=== PATIENT | male | born 1995 | race American Indian/Alaskan Native ===

== ENCOUNTER 2018-08-22 15:23 | Emergency (ER) | payer SELFPAY ==
[2018-08-22] MEDS ORDERED: ULTRAM PO ONE (20:41)
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
[2018-08-22 21:01] VITALS: BP 122/68
== END 2018-08-22 21:00 | disposition home or self-care (01) ==
LOC: ED 15:23
DX: S16.1XXA Strain of muscle, fascia and tendon at neck level, initial encounter (principal); S39.012A Strain of muscle, fascia and tendon of lower back, initial encounter; V89.2XXA Person injured in unspecified motor-vehicle accident, traffic, initial encounter; Y93.89 Activity, other specified; Y99.8 Other external cause status; Y92.410 Unspecified street and highway as the place of occurrence of the external cause
CPT/HCPCS: 99282

== ENCOUNTER 2020-09-03 22:42 | Emergency (ER) | payer SELFPAY ==
[2020-09-04 01:25] VITALS: BP 116/67
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
== END 2020-09-04 04:43 | disposition home or self-care (01) ==
LOC: ED 22:42
DX: S16.1XXA Strain of muscle, fascia and tendon at neck level, initial encounter (principal); Z79.899 Other long term (current) drug therapy; V49.49XA Driver injured in collision with other motor vehicles in traffic accident, initial encounter; Y92.410 Unspecified street and highway as the place of occurrence of the external cause; Y93.89 Activity, other specified; Y99.8 Other external cause status
CPT/HCPCS: 99282